=== PATIENT | female | born 1985 | race Caucasian/White ===

== ENCOUNTER 2019-05-23 03:08 | Inpatient (IN) | payer BC, MEDICARE ==
[2019-05-23] MEDS ORDERED: Oxytocin/Normal Saline 30 UNIT/500 ML BAG IV SCH ×2 (08:30→12:30)
[2019-05-23] MEDS: Lactated Ringers 1,000 ML IV SCH ×2 (09:43→15:56)
[2019-05-23] MEDS ORDERED: Sodium Chloride 0.9% 10 ML Syringe FLUSH PRN (12:19)
[2019-05-23] MEDS ORDERED: Lactated Ringers 1,000 ML IV ONE (12:19)
[2019-05-23] MEDS ORDERED: Ondansetron 4 MG/2 ML SDV IVPUSH PRN (12:19)
[2019-05-23] MEDS ORDERED: fentaNYL 100 MCG/2 ML SDV IVPUSH PRN (12:19)
[2019-05-23] MEDS ORDERED: Lidocaine 1% 30 ML SDV INJECT PRN (12:19)
[2019-05-23] MEDS ORDERED: Butorphanol 2 MG/ML SDV IVPUSH PRN ×2 (12:19)
[2019-05-23] MEDS ORDERED: Tranexamic Acid 1,000 MG in Sodium Chloride 0.9% 100 ML IV PRN (12:19)
[2019-05-23] MEDS ORDERED: Methylergonovine 0.2 MG/1 ML Amp IM PRN (12:19)
[2019-05-23] MEDS ORDERED: Carboprost Tromethamine 250 MCG/1 ML Amp IM PRN (12:19)
[2019-05-23] MEDS ORDERED: Misoprostol 400 MCG (4 X 100 MCG TAB) RECTAL PRN (12:19)
[2019-05-23] MEDS ORDERED: Lactated Ringers 1,000 ML IV SCH (12:30)
--- NOTE | 2019-05-23 12:35 | PCM.LDHP ---
L&D History of Present Illness - General Date of Service: 05/23/19 Admit Problem/Dx: Patient Status Order with Admit Dx/Problem 05/23/19 12:19 Patient Status [ADT] Routine Admission Diagnosis/Problem Admission Diagnosis/Problem care Source of Information: Patient History Limitations: Reports: No Limitations - History of Present Illness Introduction:: 34-year-old at 38w5d presents with L&D with SROM around 0400. Patient noted to be grossly ruptured upon arrival to L&D. Fluid is noted to be clear. Baby has been active. No vaginal bleeding or leaking of fluid. has been complicated by seizure disorder and proteinuria of . - Related Data Allergies/Adverse Reactions: Allergies Allergy/AdvReac Type Severity Reaction Status Date / Time infliximab [From Remicade] Allergy Anaphylactic Verified 05/23/19 08:27 Shock Latex, Natural Rubber Allergy Rash Verified 05/23/19 08:27 shellfish derived Allergy Anaphylactic Verified 05/23/19 08:27 Shock Home Medications: Home Meds Aspirin [Halfprin] 81 mg PO BRK 08/23/15 [History] lamoTRIgine [Lamictal] 25 mg PO DAILY 08/23/15 [History] levETIRAcetam [Keppra Xr] 750 mg PO ASDIRECTED 08/23/15 [History] Ferrous Sulfate 325 mg PO DAILY 05/23/19 [History] #103/Iron Fumarate/Fa [ ] 1 tab PO DAILY 05/23/19 [ History] Acetaminophen [Tylenol] 650 mg PO Q4H PRN tablet 05/24/19 [Rx] Docusate Sodium [Colace] 100 mg PO BID PRN cap 05/24/19 [Rx] Ibuprofen [Motrin] 800 mg PO Q8H PRN tablet 05/24/19 [Rx] witch Shiv [Medi-Pads] 1 each TOP Q4HR PRN pad 05/24/19 [Rx] Past Medical History HEENT History: Reports: Other (See Below) Other HEENT History: nontraumatic intracerebral hemorrhage 06/21/2015 Cardiovascular History: Reports: Other (See Below) Other Cardiovascular History: 03/11/2012 Chronic ischemic right MCA stroke Respiratory History: Reports: None Gastrointestinal History: Reports: None Genitourinary History: Reports: None MEDICAL RECORDS SPECIALIST History: Reports: Musculoskeletal History: Reports: Other (See Below) Other Musculoskeletal History: paralysis of left arm. 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 left wrist suregery 2016. right ring finger surgery Social & Family History - Family History Family Medical History: Noncontributory - Tobacco Use Smoking Status *Q: Never Smoker Second Hand Smoke Exposure: No - Caffeine Use Caffeine Use: Reports: Soda Other Caffeine Use: 2-3 DRPayal Godwin per day - Recreational Drug Use Recreational Drug Use: No H&P Review of Systems - Review of Systems: Review Of Systems: See Below General: Reports: No Symptoms HEENT: Reports: No Symptoms Pulmonary: Reports: No Symptoms Cardiovascular: Reports: No Symptoms Gastrointestinal: Reports: No Symptoms Genitourinary: Reports: No Symptoms Musculoskeletal: Reports: No Symptoms Skin: Reports: No Symptoms L&D Exam - Exam Exam: See Below - Vital Signs Vital Signs: Last Vital Signs Temp 36.4 C 05/23/19 09:45 Pulse 92 05/23/19 10:45 Resp 16 05/23/19 05:30 BP 108/65 05/23/19 10:45 Pulse Ox Weight: 70.76 kg - OB Specific Contraction Duration (sec): 40-60 Contraction Frequency (min): 4 Contraction Intensity: Mild Movement: Active Heart Tones: Present Heart Tones per Min: 140 Heart Rate (FHR) Variability: Moderate (6-25 bmp) Presentation: Vertex - Weaver Score Weaver Score Cervix Position: Posterior Weaver Score Consistency: Medium Weaver Score Effacement: 51-70% Weaver Score Dilation: 1-2 cm Weaver Score 's Station: -2 Weaver Score Total: 5 - Exam General: Alert, Oriented Lungs: Clear to Auscultation, Normal Respiratory Effort Cardiovascular: Regular Rate, Regular Rhythm. No: Systolic Murmur, Diastolic Murmur Genitourinary: Normal external exam Back Exam: Normal Inspection Extremities: No Pedal Edema Skin: Warm, Dry, Intact Psychiatric: Alert, Normal Affect, Normal Mood - Patient Data Lab Results Last 24 hrs: Laboratory Results - last 24 hr 05/23/19 05/23/19 Range/Units 04:10 05:45 WBC 11.2 H (5.0-10.0) 10^3/uL RBC 4.36 (4.2-5.4) 10^6/uL Hgb 12.6 (12.0-16.0) g/dL Hct 36.2 L (37.0-47.0) % MCV 83.0 (80-100) fL MCH 28.9 (27.0-34.0) pg MCHC 34.8 (33.0-35.0) g/dL Plt Count 270 (150-450) 10^3/uL Neut % (Auto) 70.8 (42.2-75.2) % Lymph % (Auto) 22.4 (20.5-50.1) % [place] % (Auto) 5.8 (2-8) % Eos % (Auto) 0.8 L (1.0-3.0) % Baso % (Auto) 0.2 (0.0-1.0) % Urine Color Yellow (YELLOW) Urine Appearance Slightly cloudy (CLEAR) Urine pH 7.0 (5.0-9.0) Ur Specific [place] 1.015 (1.005-1.030) Urine Protein Trace H (NEGATIVE) Urine Glucose (UA) Negative (NEGATIVE) Urine Ketones Negative (NEGATIVE) Urine Occult Blood Large H (NEGATIVE) Urine Nitrite Negative (NEGATIVE) Urine Bilirubin Negative (NEGATIVE) Urine Urobilinogen 1.0 (0.2-1.0) mg/dL Ur Leukocyte Esterase Moderate H (NEGATIVE) Urine RBC 50-75 H /HPF Urine WBC 40-50 H (0-5/HPF) /HPF Ur Epithelial Cells Many H (NOT SEEN) /HPF Urine Bacteria Many H (0-FEW/HPF) /HPF Urine Mucus Moderate H (NOT SEEN) /LPF Urine Other See note Result Diagrams: 05/23/19 05:45 - Problem List (1) care SNOMED Code(s): 097049931, 73516227, 639587845, 423375167 ICD Code: Z34.90 - ENCNTR FOR SUPRVSN OF NORMAL , UNSP, UNSP TRIMESTER Status: Acute (2) SROM (spontaneous rupture of membranes) SNOMED Code(s): 354726217 ICD Code: TQU8434 - Status: Acute (3) Proteinuria affecting SNOMED Code(s): 53513521, 391337421 ICD Code: O12.10 - GESTATIONAL PROTEINURIA, UNSPECIFIED TRIMESTER Status: Acute (4) Seizure disorder during SNOMED Code(s): 894047140 ICD Code: O99.350 - DISEASES OF THE NERVOUS SYS COMP , UNSP TRIMESTER; G40.909 - EPILEPSY, UNSP, NOT INTRACTABLE, WITHOUT STATUS EPILEPTICUS Status: Acute Problem List Initiated/Reviewed/Updated: Yes Orders Last 24hrs: Active Orders 24 hr Category Date Time Status Patient Status [ADT] Routine ADT 05/23/19 12:19 Ordered Communication Order [RC] ASDIRECTED Care 05/23/19 12:19 Ordered EFM [ Heart Rate] [RC] Click to Edit Care 05/23/19 04:10 Active Heart Tones [RC] PER UNIT ROUTINE Care 05/23/19 12:19 Ordered Notify Provider Vital Signs OB [RC] ASDIRECTED Care 05/23/19 12:19 Ordered Notify Provider [RC] PRN Care 05/23/19 12:19 Ordered Pump Management, Intrathecal [RC] ASDIRECTED Care 05/23/19 12:19 Ordered Up ad Roxy [RC] ASDIRECTED Care 05/23/19 12:19 Ordered Vital Signs [RC] PER UNIT ROUTINE Care 05/23/19 12:19 Ordered Regular Diet [DIET] Diet 05/23/19 Breakfast Active Acetaminophen [Tylenol] Med 05/23/19 12:19 Ordered 650 mg PO Q4H PRN Butorphanol [Stadol] Med 05/23/19 12:19 Ordered 0.5 mg IVPUSH Q3H PRN Butorphanol [Stadol] Med 05/23/19 12:19 Ordered 1 mg IVPUSH Q3H PRN Carboprost Tromethamine [Hemabate DS] Med 05/23/19 12:19 Ordered 250 mcg IM ASDIRECTED PRN Lactated Ringers @ 125 MLS/HR(1000ml) Med 05/23/19 12:30 Ordered Lactated Ringers [Ringers, Lactated] 1,000 ml IV ASDIRECTED Lactated Ringers [Ringers, Lactated] 1,000 ml Med 05/23/19 05:15 Active IV ASDIRECTED Lactated Ringers [Ringers, Lactated] 1,000 ml Med 05/23/19 12:19 Ordered IV BOLUS Lidocaine 1% [Xylocaine-MPF 1%] Med 05/23/19 12:19 Ordered 30 ml INJECT ASDIRECTED PRN Methylergonovine [Methergine] Med 05/23/19 12:19 Ordered 0.2 mg IM ASDIRECTED PRN Ondansetron [Zofran] Med 05/23/19 12:19 Ordered 4 mg IVPUSH Q4H PRN Oxytocin 30 Units in NS @ 2 MUNITS/MIN(500ml) Med 05/23/19 12:30 Ordered Oxytocin/Normal Saline [Pitocin in NS 30 UNIT/500 ML] 30 unit in 500 ml IV TITRATE Oxytocin/Normal Saline [Pitocin in NS 30 UNIT/500 ML] Med 05/23/19 08:30 Active 30 unit in 500 ml IV TITRATE Sodium Chloride 0.9% [Saline Flush] Med 05/23/19 12:19 Ordered 10 ml FLUSH ASDIRECTED PRN Tranexamic Acid [Cyklokapron] 1,000 mg Med 05/23/19 12:19 Ordered Sodium Chloride 0.9% [Normal Saline] 100 ml IV ONETIME fentaNYL [Sublimaze] Med 05/23/19 12:19 Ordered 100 mcg IVPUSH Q1H PRN miSOPROStoL [Cytotec] Med 05/23/19 12:19 Ordered 800 mcg RECTAL ASDIRECTED PRN Saline Lock Insert [OM.PC] Routine Oth 05/23/19 12:19 Ordered Resuscitation Status Routine Resus Stat 05/23/19 12:19 Ordered Medication Orders Lactated Ringer's (Ringers, Lactated) 1,000 mls @ 125 mls/hr IV ASDIRECTED ROCK Last Admin: 05/23/19 09:43 Dose: 125 mls/hr Oxytocin/Sodium Chloride (Pitocin In Ns 30 Unit/500 Ml) 30 unit in 500 mls @ 2 mls/hr IV TITRATE ROCK; Protocol Last Titration: 05/23/19 10:17 Dose: 4 munits/min, 4 mls/hr Admin: 05/23/19 09:44 Dose: 2 munits/min, 2 mls/hr Assessment/Plan Comment:: 34-year-old at 38w5d with SROM 1. Admit to L&D and initiate routine intrapartum orders 2. Will monitor for a few hours. If contractions do not increase, will start pitocin for augmentation 3. Patient does desire intrathecal when appropriate 4. Continue seizure meds 5. Expectant management. Anticipate Marifer Almendarez MD
[2019-05-23] MEDS ORDERED: EPINEPHrine 1 MG/1 ML Amp ONE (15:42)
[2019-05-23] MEDS ORDERED: fentaNYL 100 MCG/2 ML SDV ONE (15:42)
--- NOTE | 2019-05-23 16:18 | PCM.PRNOTE ---
- Free Text/Narrative Note: Requested to provide analgesia to full term patient in severe pain. Upon entering the room, patient is sitting on edge of bed complaining of severe abdominal/pelvic pain and discomfort. Procedure was discussed with patient including adverse outcomes and expectations. Pt consented to analgesia, SAB/ IT. Pt placed into a proper sitting position. Landmarks for SAB/IT were identified and marked. Hands were washed and appropriate PPE was applied. Back was prepped with betadine x3. A sterile, transparent, fenestrated drape was applied. Excess betadine was removed. Using 3 mL of a 1% lidocaine solution , a skin wheel was placed at the L2/L3 interspace. A 24 ga (4 inch) Pencan spinal needle was inserted until positive for CSF. Negative for heme or paresthesias. Injected fentanyl 30 mcg, sufentanil 25 mcg, and 9 mg of a 0.75% bupivacaine solution with an epi wash. Pt was placed left lateral position for approximately 20 minutes. There were zero complications or adverse outcomes. Will continue to monitor. Procedure Date & Time: 05/23/19 [id number]
--- NOTE | 2019-05-23 17:30 | PCM.DEL ---
L & D Note - General Info Date of Service: 05/23/19 Mother's Due Date: 06/01/19 - Delivery Note Labor: Spontaneous, Augmented by Oxytocin Delivery Outcome: Livebirth Infant Delivery Method: Spontaneous Vaginal Delivery-Single Presentation: Vertex Nuchal Cord: None Anesthesia Type: Intrathecal Amniotic Fluid Description: Clear Episiotomy Type: None Laceration: Periurethral Suture type: Vicryl Suture size: 3-0 Placenta: Intact, Spontaneous Cord: 3 Vessels Estimated Blood Loss: 225 Forbes: Bulb Syringe Provider: Marifer Almendarez Score 1 min: 6 Score 5 min: 9 Post Delivery Events: Placenta Increta Delivery Comments (Free Text/Narrative):: 34-year-old at 38w5d presents to L&D with SROM around 0400 for moderate clear fluid. She was noted to be grossly ruptured upon arrival to L&D. Contractions were monitored for 3 hours. Cervical exam was noted to be unchanged so pitocin was started for augmentation of labor. Patient progressed through labor appropriately. She did receive an intrathecal for pain control. She progressed to complete dilation at 1640 with 2+ station. I presented to L& D for delivery. Patient pushed fro 16 minutes with good head descent. She delivered a viable male at 1700 with Apgars of 6 and 9 at 1 and 5 minutes respectively. Cord was clamped x 2 and cut by patient's significant other. Cord blood was collected. Baby was placed on mother's chest then taken to the warmer for resuscitation. Placenta delivered spontaneously about 5 minutes later. Uterine bleeding was initially noted to be brisk. Bimanual massage and removal of several large clots was performed. Uterine tone improved as did bleeding. A keerthi-urethral laceration was repaired in the usual fashion. Bleeding was reassessed and noted to be appropriate. Patient tolerated the procedure well, and there were no immediate complications. Induction Criteria - Weaver Score Weaver Score Dilation: 1-2 cm Weaver Score Effacement: 60-70% Weaver Score Infant's Station: -2 Weaver Score Consistency: Medium Weaver Score Cervix Position: Posterior Weaver Score Total: 5 - Augmentation Estimated Pelvis: Reports: Adequate Weight Estimated:: Reports: AGA Reassuring Monitoring Strip: Yes Absence of Tachy Systole: Yes - General Info Date of Service: 03/23/20 - Patient Data Vitals - Most Recent: Last Vital Signs Temp 36.4 C 05/23/19 09:45 Pulse 80 05/23/19 15:15 Resp 16 05/23/19 05:30 BP 139/69 05/23/19 15:15 Pulse Ox Weight - Most Recent: 70.76 kg Lab Results Last 24 Hours: Laboratory Results - last 24 hr 05/23/19 05/23/19 Range/Units 04:10 05:45 WBC 11.2 H (5.0-10.0) 10^3/uL RBC 4.36 (4.2-5.4) 10^6/uL Hgb 12.6 (12.0-16.0) g/dL Hct 36.2 L (37.0-47.0) % MCV 83.0 (80-100) fL MCH 28.9 (27.0-34.0) pg MCHC 34.8 (33.0-35.0) g/dL Plt Count 270 (150-450) 10^3/uL Neut % (Auto) 70.8 (42.2-75.2) % Lymph % (Auto) 22.4 (20.5-50.1) % [place] % (Auto) 5.8 (2-8) % Eos % (Auto) 0.8 L (1.0-3.0) % Baso % (Auto) 0.2 (0.0-1.0) % Urine Color Yellow (YELLOW) Urine Appearance Slightly cloudy (CLEAR) Urine pH 7.0 (5.0-9.0) Ur Specific [place] 1.015 (1.005-1.030) Urine Protein Trace H (NEGATIVE) Urine Glucose (UA) Negative (NEGATIVE) Urine Ketones Negative (NEGATIVE) Urine Occult Blood Large H (NEGATIVE) Urine Nitrite Negative (NEGATIVE) Urine Bilirubin Negative (NEGATIVE) Urine Urobilinogen 1.0 (0.2-1.0) mg/dL Ur Leukocyte Esterase Moderate H (NEGATIVE) Urine RBC 50-75 H /HPF Urine WBC 40-50 H (0-5/HPF) /HPF Ur Epithelial Cells Many H (NOT SEEN) /HPF Urine Bacteria Many H (0-FEW/HPF) /HPF Urine Mucus Moderate H (NOT SEEN) /LPF Urine Other See note Med Orders - Current: Current Medications Acetaminophen (Tylenol) 650 mg PO Q4H PRN PRN Reason: Pain (Mild 1-3) and fever Butorphanol Tartrate (Stadol) 0.5 mg IVPUSH Q3H PRN PRN Reason: Pain Butorphanol Tartrate (Stadol) 1 mg IVPUSH Q3H PRN PRN Reason: Pain Carboprost Tromethamine (Hemabate Ds) 250 mcg IM ASDIRECTED PRN PRN Reason: HEMORRHAGE Fentanyl (Sublimaze) 100 mcg IVPUSH Q1H PRN PRN Reason: Pain (moderate 4-6) Last Admin: 05/23/19 14:10 Dose: 100 mcg Lactated Ringer's (Ringers, Lactated) 1,000 mls @ 125 mls/hr IV ASDIRECTED ROCK Last Admin: 05/23/19 15:56 Dose: 125 mls/hr Oxytocin/Sodium Chloride (Pitocin In Ns 30 Unit/500 Ml) 30 unit in 500 mls @ 2 mls/hr IV TITRATE ROCK; Protocol Last Titration: 05/23/19 13:35 Dose: 10 munits/min, 10 mls/hr Oxytocin/Sodium Chloride (Pitocin In Ns 30 Unit/500 Ml) 30 unit in 500 mls @ 2 mls/hr IV TITRATE ROCK; Protocol Tranexamic Acid 1,000 mg/ (Sodium Chloride) 110 mls @ 660 mls/hr IV ONETIME PRN PRN Reason: Bleeding Lidocaine HCl (Xylocaine-Mpf 1%) 30 ml INJECT ASDIRECTED PRN PRN Reason: Perineal Repair Methylergonovine Maleate (Methergine) 0.2 mg IM ASDIRECTED PRN PRN Reason: Hemorrhage Misoprostol (Cytotec) 800 mcg RECTAL ASDIRECTED PRN PRN Reason: Hemorrhage Ondansetron HCl (Zofran) 4 mg IVPUSH Q4H PRN PRN Reason: Nausea/Vomiting Last Admin: 05/23/19 14:13 Dose: 4 mg Sodium Chloride (Saline Flush) 10 ml FLUSH ASDIRECTED PRN PRN Reason: Keep Vein Open Discontinued Medications Epinephrine HCl (Adrenalin) Confirm Administered Dose 1 mg .ROUTE .STK-MED ONE Stop: 05/23/19 15:43 Fentanyl (Sublimaze) Confirm Administered Dose 100 mcg .ROUTE .STK-MED ONE Stop: 05/23/19 15:43 Lactated Ringer's (Ringers, Lactated) 1,000 mls @ 999 mls/hr IV BOLUS ONE Stop: 05/23/19 13:19 Last Admin: 05/23/19 15:34 Dose: 999 mls/hr Sufentanil Citrate (Sufenta) Confirm Administered Dose 50 mcg .ROUTE .STK-MED ONE Stop: 05/23/19 15:43 - Problem List & Annotations (1) (normal spontaneous vaginal delivery) SNOMED Code(s): 02052225, 157318555 Code(s): O80 - ENCOUNTER FOR FULL-TERM UNCOMPLICATED DELIVERY Status: Acute (2) Periurethral laceration, delivered, current hospitalization SNOMED Code(s): 070249773, 115728350 Code(s): O71.82 - OTHER SPECIFIED TRAUMA TO PERINEUM AND VULVA Status: Acute - Problem List Review Problem List Initiated/Reviewed/Updated: Yes - My Orders Last 24 Hours: My Active Orders 05/23/19 04:10 EFM [ Heart Rate] [RC] Click to Edit 05/23/19 05:15 Lactated Ringers [Ringers, Lactated] 1,000 ml IV ASDIRECTED 05/23/19 08:30 Oxytocin/Normal Saline [Pitocin in NS 30 UNIT/500 ML] 30 unit in 500 ml IV TITRATE 05/23/19 12:19 Patient Status [ADT] Routine Communication Order [RC] ASDIRECTED Notify Provider Vital Signs OB [RC] ASDIRECTED Notify Provider [RC] PRN Pump Management, Intrathecal [RC] ASDIRECTED Up ad Roxy [RC] ASDIRECTED Vital Signs [RC] 08,20 Acetaminophen [Tylenol] 650 mg PO Q4H PRN Butorphanol [Stadol] 0.5 mg IVPUSH Q3H PRN Butorphanol [Stadol] 1 mg IVPUSH Q3H PRN Carboprost Tromethamine [Hemabate DS] 250 mcg IM ASDIRECTED PRN Lidocaine 1% [Xylocaine-MPF 1%] 30 ml INJECT ASDIRECTED PRN Methylergonovine [Methergine] 0.2 mg IM ASDIRECTED PRN Ondansetron [Zofran] 4 mg IVPUSH Q4H PRN Sodium Chloride 0.9% [Saline Flush] 10 ml FLUSH ASDIRECTED PRN Tranexamic Acid [Cyklokapron] 1,000 mg Sodium Chloride 0.9% [Normal Saline] 100 ml IV ONETIME fentaNYL [Sublimaze] 100 mcg IVPUSH Q1H PRN miSOPROStoL [Cytotec] 800 mcg RECTAL ASDIRECTED PRN Saline Lock Insert [OM.PC] Routine Resuscitation Status Routine 05/23/19 12:30 Oxytocin/Normal Saline [Pitocin in NS 30 UNIT/500 ML] 30 unit in 500 ml IV TITRATE 05/23/19 Breakfast Regular Diet [DIET] - Assessment Assessment:: 34-year-old, now , status post- at 38w5d - Plan Plan:: 1. Initiate routine cares 2. Mother plans to breastfeed 3. Anticipate discharge 05/23/2019 Marifer Almendarez MD
[2019-05-23] MEDS ORDERED: Simethicone 80 MG Tab.Chew PO PRN (17:31)
[2019-05-23] MEDS ORDERED: Benzocaine/Menthol 20%-0.5% Spray 56 GM Canister TOP PRN (17:31)
[2019-05-23] MEDS ORDERED: Ibuprofen 800 MG Tab PO PRN (17:31)
[2019-05-23] MEDS ORDERED: Oxytocin 10 Units/1 ML SDV IM PRN (17:31)
[2019-05-23] MEDS: Acetaminophen 325 MG Tab PO PRN (22:30)
[2019-05-23] MEDS: Docusate Sodium 100 MG Cap PO PRN (22:30)
[2019-05-24] MEDS ORDERED: Prenatal Multivitamin with Calcium/Folic Acid/Iron Tab PO SCH (09:00)
[2019-05-24] MEDS: Docusate Sodium 100 MG Cap PO PRN (09:32)
[2019-05-24] MEDS: Acetaminophen 325 MG Tab PO PRN (09:32)
[2019-05-24 09:41] VITALS: BP 96/66; PULSE 88
[2019-05-24] MEDS ORDERED: fentaNYL 100 MCG/2 ML SDV ITHECAL ONE (18:59)
[2019-05-24] MEDS ORDERED: EPINEPHrine 1 MG/1 ML Amp ONE (18:59)
[2019-05-24] MEDS ORDERED: Bupivacaine 0.75%/D5W 2 ML Amp ISPINAL ONE (18:59)
[2019-05-24] MEDS ORDERED: Lidocaine 1% 30 ML SDV ONE (18:59)
--- NOTE | 2019-05-28 15:03 | PCM.DCSUM1 ---
Discharge Summary - Hospital Course Free Text/Narrative:: 34-year-old PPD#1 status post at 38w5d Diagnosis: Stroke: No - Discharge Data Discharge Date: 05/24/19 Discharge Disposition: Home, Self-Care 01 Condition: Good - Referral to Home Health Primary Care Physician: Charlene Almendarez MD - Discharge Diagnosis/Problem(s) (1) (normal spontaneous vaginal delivery) SNOMED Code(s): 44772605, [id number] ICD Code: O80 - ENCOUNTER FOR FULL-TERM UNCOMPLICATED DELIVERY Status: Acute (2) Periurethral laceration, delivered, current hospitalization SNOMED Code(s): 385739719, [id number] ICD Code: O71.82 - OTHER SPECIFIED TRAUMA TO PERINEUM AND VULVA Status: Acute - Patient Summary/Data Operative Procedure(s) Performed: None Complications: None Consults: Consultations 05/23/19 17:31 Consult to Scall[employer] Cutter Machine [CONS] Routine 05/24/19 10:35 OT Evaluation and Treatment [CONS] Routine Labs Pending at D/C: None Recommended Follow-up Testing/Procedures: None Planned Operative Procedure(s) after DC: None Hospital Course: Please see subjective section - Patient Instructions Diet: Heart Healthy Diet Activity: As Tolerated Driving: May Drive Today Showering/Bathing: May Shower Wound/Incision Care: Keep Operative Site/Wound Site Clean and Dry Notify Provider of: Fever, Increased Pain, Swelling and Redness, Drainage, Nausea and/or Vomiting - Discharge Plan *PRESCRIPTION DRUG MONITORING PROGRAM REVIEWED*: Not Applicable *COPY OF PRESCRIPTION DRUG MONITORING REPORT IN PATIENT CHARLEEN: Not Applicable Home Medications: Home Meds Aspirin [Halfprin] 81 mg PO BRK 08/23/15 [History] lamoTRIgine [Lamictal] 25 mg PO DAILY 08/23/15 [History] levETIRAcetam [Keppra Xr] 750 mg PO ASDIRECTED 08/23/15 [History] Ferrous Sulfate 325 mg PO DAILY 05/23/19 [History] #103/Iron Fumarate/Fa [ ] 1 tab PO DAILY 05/23/19 [ History] Acetaminophen [Tylenol] 650 mg PO Q4H PRN tablet 05/24/19 [Rx] Docusate Sodium [Colace] 100 mg PO BID PRN cap 05/24/19 [Rx] Ibuprofen [Motrin] 800 mg PO Q8H PRN tablet 05/24/19 [Rx] luisana Francoise [Medi-Pads] 1 each TOP Q4HR PRN pad 05/24/19 [Rx] Patient Handouts: Care of a Perineal Tear, Care After Vaginal Delivery - Discharge Summary/Plan Comment DC Time >30 min.: No Discharge Summary/Plan Comment: Discharge home today per patient request. Follow-up in 6-8 weeks for visit or sooner as needed. Discussed use of other pillows to help with infant positioning during . Discussed reasons to return to the clinic or present to the ED. - General Info Date of Service: 05/24/19 Subjective Update: Patient is doing well. No fever or chills. Ambulating without difficulty. Tolerating a general diet. Urinating and passing gas. No dizziness or lightheadedness. Pain is well controlled with Tylenol and ibuprofen. No seizures since delivery. Vaginal bleeding has decreased. is going fairly well--some difficulty with positioning due to hemiparesis. No concerns per patient or per nursing staff. Functional Status: Reports: Pain Controlled, Tolerating Diet, Ambulating, Urinating - Review of Systems General: Reports: No Symptoms HEENT: Reports: No Symptoms Pulmonary: Reports: No Symptoms Cardiovascular: Reports: No Symptoms Gastrointestinal: Reports: No Symptoms Genitourinary: Reports: No Symptoms Musculoskeletal: Reports: No Symptoms Skin: Reports: No Symptoms - Patient Data Vitals - Most Recent: Last Vital Signs Temp 37.1 C 05/24/19 08:00 Pulse 88 05/24/19 08:00 Resp 16 05/24/19 08:00 BP 96/66 05/24/19 08:00 Pulse Ox 95 05/23/19 19:50 Weight - Most Recent: 70.76 kg Med Orders - Current: Current Medications Discontinued Medications Acetaminophen (Tylenol) 650 mg PO Q4H PRN PRN Reason: Pain (Mild 1-3) and fever Last Admin: 05/24/19 09:32 Dose: 650 mg Benzocaine/Menthol (Dermoplast Pain Relief Cornelius) 0 gm TOP Q4H PRN PRN Reason: Perineal comfort measures Butorphanol Tartrate (Stadol) 0.5 mg IVPUSH Q3H PRN PRN Reason: Pain Butorphanol Tartrate (Stadol) 1 mg IVPUSH Q3H PRN PRN Reason: Pain Carboprost Tromethamine (Hemabate Ds) 250 mcg IM ASDIRECTED PRN PRN Reason: HEMORRHAGE Docusate Sodium (Colace) 100 mg PO BID PRN PRN Reason: Constipation Last Admin: 05/24/19 09:32 Dose: 100 mg Epinephrine HCl (Adrenalin) Confirm Administered Dose 1 mg .ROUTE .STK-MED ONE Stop: 05/23/19 15:43 Last Admin: 05/23/19 18:16 Dose: Not Given Fentanyl (Sublimaze) 100 mcg IVPUSH Q1H PRN PRN Reason: Pain (moderate 4-6) Last Admin: 05/23/19 14:10 Dose: 100 mcg Fentanyl (Sublimaze) Confirm Administered Dose 100 mcg .ROUTE .STK-MED ONE Stop: 05/23/19 15:43 Last Admin: 05/23/19 18:17 Dose: Not Given Lactated Ringer's (Ringers, Lactated) 1,000 mls @ 125 mls/hr IV ASDIRECTED ROCK Last Infusion: 05/23/19 19:10 Dose: 0 mls/hr Oxytocin/Sodium Chloride (Pitocin In Ns 30 Unit/500 Ml) 30 unit in 500 mls @ 2 mls/hr IV TITRATE ROCK; Protocol Last Titration: 05/23/19 19:10 Dose: 0 munits/min, 0 mls/hr Lactated Ringer's (Ringers, Lactated) 1,000 mls @ 999 mls/hr IV BOLUS ONE Stop: 05/23/19 13:19 Last Admin: 05/23/19 15:34 Dose: 999 mls/hr Oxytocin/Sodium Chloride (Pitocin In Ns 30 Unit/500 Ml) 30 unit in 500 mls @ 2 mls/hr IV TITRATE ROCK; Protocol Tranexamic Acid 1,000 mg/ (Sodium Chloride) 110 mls @ 660 mls/hr IV ONETIME PRN PRN Reason: Bleeding Ibuprofen (Motrin) 800 mg PO Q8H PRN PRN Reason: Mild Pain or Fever Lidocaine HCl (Xylocaine-Mpf 1%) 30 ml INJECT ASDIRECTED PRN PRN Reason: Perineal Repair Methylergonovine Maleate (Methergine) 0.2 mg IM ASDIRECTED PRN PRN Reason: Hemorrhage Misoprostol (Cytotec) 800 mcg RECTAL ASDIRECTED PRN PRN Reason: Hemorrhage Ondansetron HCl (Zofran) 4 mg IVPUSH Q4H PRN PRN Reason: Nausea/Vomiting Last Admin: 05/23/19 14:13 Dose: 4 mg Oxytocin (Pitocin) 10 unit IM ONETIME PRN PRN Reason: Bleeding Prenat Multivit/Le[employer]s [employer]er/Iron/Folic Ac ( Plus Iron) 1 each PO DAILY ROCK Last Admin: 05/24/19 09:32 Dose: 1 each Simethicone (Simethicone) 80 mg PO Q4H PRN PRN Reason: Gas Sodium Chloride (Saline Flush) 10 ml FLUSH ASDIRECTED PRN PRN Reason: Keep Vein Open Sufentanil Citrate (Sufenta) Confirm Administered Dose 50 mcg .ROUTE .STK-MED ONE Stop: 05/23/19 15:43 Last Admin: 05/23/19 18:17 Dose: Not Given Witch Francoise (Medi-Pads) 1 each TOP Q4HR PRN PRN Reason: Perineal Comfort Measure - Exam General: Reports: Alert, Oriented Lungs: Reports: Clear to Auscultation, Normal Respiratory Effort Cardiovascular: Reports: Regular Rate, Regular Rhythm, No Murmurs GI/Abdominal Exam: Soft, Non-Tender Extremities: No Pedal Edema Skin: Reports: Warm, Dry, Intact
== END 2019-05-24 19:00 | disposition home or self-care (01) | DRG 560 ==
LOC: DL.OBCHECK 03:08 → DL.OB 04:39 → UNDOADMOB 04:39 → DL.OB 12:19 → OBSVTOIN 17:00 → DL.OB 17:00
PROVIDERS: ADMIT Family Medicine; ATTEND Family Medicine
PROC: 10E0XZZ Delivery of Products of Conception, External Approach (ICD-10-PCS; principal; 2019-05-23)
PROC: 0UQMXZZ Repair Vulva, External Approach (ICD-10-PCS; 2019-05-23)
DX: O71.82 Other specified trauma to perineum and vulva (principal); Z37.0 Single live birth; Z3A.38 38 weeks gestation of pregnancy
CPT/HCPCS: 36415; 51701; 59025; 59409; 81001; 85025; A9270-GY; J0171; J2001; J2405; J2590; J3010; J7120